=== PATIENT | male | born 1990 | race Hispanic/Latino ===

== ENCOUNTER 2018-12-12 13:29 | Emergency (ER) | payer OTHER ==
[~2018-12-12] VITALS: Ht 177.8 cm; Wt 90.9 kg
--- NOTE | 2018-12-12 14:42 | REP ---
Right ankle four views: There is a nondisplaced oblique fracture in the distal fibular shaft. The ankle mortise is symmetric. Mineralization is normal. There is no dislocation. There is a small accessory ossicle at the tip of the medial malleolus. Impression: Nondisplaced oblique fracture of the distal fibular shaft. Electronically Signed by James Rivera MD 12/12/2018 02:34 P
--- NOTE | 2018-12-12 14:45 | REP ---
Right tibia-fibula two views: There is a nondisplaced fracture of the distal fibular shaft. Mineralization is normal. There are no calcifications or foreign bodies. The study is otherwise unremarkable. Impression: Nondisplaced fracture of the distal fibular shaft. Electronically Signed by James Rivera MD 12/12/2018 02:37 P
[2018-12-12] MEDS ORDERED: NORC1TAB7 PO (16:07)
[2018-12-12 16:15] VITALS: BP 134/75
== END 2018-12-12 16:23 | disposition home or self-care (01) ==
LOC: EDBD 13:29 → M ED 13:29
DX: S82.434 Nondisplaced oblique fracture of shaft of right fibula (principal); X50.1XXA Overexertion from prolonged static or awkward postures, initial encounter; Y92.830 Public park as the place of occurrence of the external cause; Y93.64 Activity, baseball